=== PATIENT | male | born 1955 | race Caucasian/White ===

== ENCOUNTER → 2017-08-03 | Outpatient (CLI) | payer OTHER ==
[~2017-08-03] MED LIST: ALBU0.5N2 INH; ALBU1AER9 INH; AMIT10TA6 PO; AMLO-110 PO; CHOL1TAB42 PO; CLINDAMYCIN TOPICAL TOP; CYCL10TA6 PO; FLUT0.0529 NAE; KETO2CRE14; METH16TA PO; MULTTAB PO; OMEP40CA PO; OXYC20TA50 PO; TAMS0.4C59 PO; VLT500 PO; [UNRECOGNIZED DRUG - CODE] PO
--- NOTE | 2017-08-03 11:20 | DIAGNOSTIC IMAGING REPORT ---
L SHOULDER MIN 2 VIEWS ROUTINE CLINICAL HISTORY: M15.8,B02.29 LEFT SHOULDER PAIN COMPARISON: None. DISCUSSION: No fractures or dislocations are visualized. Degenerative changes are present within the AC joint. No destructive lesions are visualized. IMPRESSION: 1. Mild degenerative changes within the AC joint 2. No acute fractures. Electronically signed by: Alexandr Pope M.D. 08/03/2017 11:18 AM Dictated Date/Time: 08/03/2017 11:18 AM
== END | disposition home or self-care (01) ==
LOC: C.RAD 10:39
PROVIDERS: ATTEND Internal Medicine Rheumatology
DX: M15.8 Other polyosteoarthritis (principal); B02.29 Other postherpetic nervous system involvement